=== PATIENT | female | born 1995 | race Caucasian/White ===

== ENCOUNTER 2024-05-08 12:56 | Emergency (ER) | payer MEDICAID, SELFPAY ==
[2024-05-08 13:58] VITALS: BP 141/72; PULSE 102; RESP 18; TEMP 36.4; O2SAT 95; BMI 26.6
--- NOTE | 2024-05-08 13:59 | ED_ITS ---
HPI - General Adult General Chief complaint: General Medical Stated complaint: medication Time Seen by Provider: 05/08/24 13:58 Source: patient Mode of arrival: ambulatory Limitations: no limitations History of Present Illness ED Provider: Adeola Pierre PA-C HPI narrative: Patient is a 28 year old assigned female at with a history of methadone use presenting to the emergency department today requesting her second dose. Patient states that she has a split dose of methadone and needs her second dose of 90mg. Patient denies any dizziness, lightheadedness, abdominal pain, nausea, vomiting, fever, chills, blurry vision, double vision, loss of vision, chest pain, difficulty breathing, shortness of breath, back pain, night sweats, pain with urination, increased urinary frequency, increased urinary urgency, blood in her urine or stool, syncope or a near syncopal episode, recent trauma or falls, bowel incontinence, bladder incontinence, or any other complaints at this time. Relieving factors: none Exacerbating factors: none Associated symptoms: denies other symptoms Treatments prior to arrival: none Related Data Home Medications ?Medication ?Instructions ?Recorded ?Confirmed methadone 10 mg/mL oral 90 mg PO BID 05/08/24 05/08/24 concentrate (Methadone Intensol) Allergies Allergy/AdvReac Type Severity Reaction Status Date / Time cranberry [CRANBERRY] Allergy Severe THROAT Verified 05/08/24 14:01 CLOSING pineapple [PINEAPPLE] Allergy Severe THROAT Verified 05/08/24 14:01 CLOSING Review of Systems Constitutional: Constitutional: Reports no additional constitutional complaints, Denies chills, Denies fever(s) and Denies night sweats Eyes: Eyes: Reports no additional eye complaints, Denies blurry vision, Denies change in vision, Denies diplopia, Denies eye discharge, Denies loss of vision and Denies eye pain ENT: Denies dizziness Cardiovascular: Cardiovascular: Reports no additional cardiovascular complaints, Denies chest pain, Denies lightheadedness, Denies Loss of Consciousness and Denies dyspnea Respiratory: Respiratory: Reports no additional respiratory complaints and Denies dyspnea Gastrointestinal: Gastrointestinal: Reports no additional gastrointestinal complaints, Denies abdominal pain, Denies melena, Denies hematochezia, Denies change in bowel habits and Denies change in stool character Genitourinary: Genitourinary: Denies hematuria, Denies urinary frequency, Denies dysuria, Denies urinary incontinence, Denies urinary hesitancy and Denies urinary urgency Musculoskeletal: Musculoskeletal: Reports no additional musculoskeletal complaints, Denies numbness and Denies tingling Neurologic: Denies dizziness, Denies loss of vision, Denies numbness and Den ies tingling Psychiatric: Psychiatric: Reports no additional psychiatric complaints Endocrine: Endocrine: Reports no additional endocrine complaints Hematologic/Lymphatic: Hematologic/Lymphatic: Reports no additional hematologic/lymphatic complaints Allergic/Immunologic: Allergic/Immunologic: Reports no additional allergic/immunologic complaints PMFSH Past Medical History Attestation statement: The following information was validated with the patient. Source: old records reviewed and nursing notes reviewed Social History Social History Advance Directives: No Advance Directives Information Provided: Yes Do you have a plan to hurt others: No Plan Physical Exam ED Vital Signs: Vital Signs - 24 hr 05/08/24 13:58 Temperature 97.6 F Pulse Rate 102 H Respiratory Rate 18 Blood Pressure 141/72 H Pulse Oximetry 95 Oxygen Delivery Method Room Air BMI result Body Mass Index 26.6 Const General: cooperative, no acute distress, alert and awake Nutritional Appearance: well nourished Orientation/consciousness: patient oriented x3 Limitations: no limitations HENMT Head: Yes normal to inspection and Yes atraumatic Ears: hearing grossly normal bilaterally and external ears normal General nose exam: Normal external nose present, no nasal discharge noted and no epistaxis Face and sinus: Yes normal facial exam, No abrasion and No laceration Mouth: Normal oral and palatal mucosa present, no drooling and no muffled voice Eyes General: appearance normal, both eyes and all related structures Periorbital: periorbital findings normal Eyelids: Yes eyelids normal Conjunctivae: conjunctivae normal Pupils: Equal, round and reactive pupils present EOM: EOMs intact bilaterally Neck Neck: Yes normal visual inspection, Yes full ROM and Yes no lymphadenopathy Chest Chest palpation & inspection: normal inspection of the chest Resp Effort & Inspection: normal respiratory effort and able to speak in complete sentences GI Inspection: Yes normal to inspection Neuro General: patient oriented x3 and moves all extremities Cranial nerves: Yes Equal, round and reactive pupils present Cognition (Neuro): normal cognition Extrem General: Yes normal to inspection, Yes full ROM and Yes capillary refill normal Psych Appearance: grossly normal Mental Status: mental status grossly normal Affect: normal affect Attitude: cooperative Thought process: Normal thought process present Thought content: Normal thought content present Insight: Good insight present (Psych) Medications Administered Discontinued Medications Generic Name Dose Route Start Last Admin Trade Name Ana Maria PRSelena Reason Stop Dose Admin Methadone HCl 90 mg 05/08/24 13:59 05/08/24 14:25 Methadone Hcl 20 Mg/2 Ml Oral.Conc PO 05/08/24 14:00 90 mg ONCE ONE Administration Medical Decision Making Medical Decision Making MDM Narrative: Patient is a 28 year old assigned female at with a history of methadone use presenting to the emergency department today requesting her second dose. Patient's physical exam was unremarkable. I explained my physical exam findings to the patient. I answered all questions asked by the patient. Patient received her dose of methadone and her last dose letter. I stressed the importance of the patient taking her medication as directed (either prescribed or as the over the counter packaging recommends). I stressed the importance of the patient following up with her primary care provider. I stressed the importance of the patient returning to the emergency department immediately if her symptoms were to worsen or if she were to develop any dizziness, shortness of breath, difficulty breathing, chest pain, blurry vision, loss of vision, nausea, vomiting, abdominal pain, fever, chills, back pain, or any other complaints. Patient verbalized agreement and understanding with this treatment plan and discharge. Differential Diagnosis Differential Diagnoses: The differential diagnosis associated with the presentation includes Methadone dose Admission/Observation Consideration of admission/observation: Escalation of care including admission/observation considered Patient would have been admitted to the hospital had her clinical presentation warranted hospital admission. Discharge Plan Discharge Clinical Impression: Methadone use Patient Disposition: Home, Self-Care Instructions: Opioid Use Disorder (ED) Additional Instructions: Follow up with your primary care provider. Return to the emergency department i mmediately if your symptoms worsen or if you develop any dizziness, shortness of breath, difficulty breathing, chest pain, blurry vision, loss of vision, nausea, vomiting, abdominal pain, fever, chills, back pain, or any other complaints. Prescriptions: No Action methadone [Methadone Intensol] 10 mg/mL Concentrate 90 mg PO BID Referrals: Lex Tong DO [Primary Care Provider] - Discharge Date/Time: 05/08/24 14:28 Print Language: Honduran
--- NOTE | 2024-05-08 14:12 | HE.PHANOTE ---
RE: METHADONE DOSING Patient takes methadone 90 mg QAM and 90 mg QPM. Last dose of 90 mg was given on 05/08/24 per [facility] [phone].
[2024-05-08] MEDS: methADONE HCl 20 MG/2 ML ORAL.CONC 90 MG PO (14:25)
== END 2024-05-08 14:28 | disposition home or self-care (01) ==
PROVIDERS: Emergency Provider Emergency Medicine; PCP Family Medicine
DX: F11.20 Opioid dependence, uncomplicated (principal)
CPT/HCPCS: 99281; 99283

== ENCOUNTER 2024-08-08 14:35 | Emergency (ER) | payer MEDICAID, SELFPAY ==
[2024-08-08 14:54] VITALS: BP 91/55; PULSE 77; RESP 20; TEMP 36.2; O2SAT 94; BMI 22.1
--- NOTE | 2024-08-08 14:59 | ED.GENADULT ---
HPI - General Adult General Chief complaint: General Medical Stated complaint: Methadone dose Time Seen by Provider: 08/08/24 19:26 Source: patient, RN notes reviewed and old records reviewed Mode of arrival: ambulatory Limitations: no limitations History of Present Illness ED Provider: Erica NAIR narrative: 29-year-old female presents for evaluation of methadone dosing. She was on a split dosing of 180 mg divided into two 90 mg doses daily Patient reports that she just got out of a [facility] detox. She was given her 1st morning dose of 90 mg and is due for her evening dose of 90 mg She plans to follow up with [facility] where she generally gets her morning dose in his given a take-home dose for her 2nd dose of the day Related Data Home Medications ?Medication ?Instructions ?Recorded ?Confirmed methadone 10 mg/mL oral 90 mg PO BID 05/08/24 08/08/24 concentrate (Methadone Intensol) Allergies Allergy/AdvReac Type Severity Reaction Status Date / Time cranberry [CRANBERRY] Allergy Severe THROAT Verified 08/08/24 14:58 CLOSING pineapple [PINEAPPLE] Allergy Severe THROAT Verified 08/08/24 14:58 CLOSING Review of Systems Constitutional: Constitutional: Denies body ache(s), Denies chills and Denies fever(s) PMFSH Social History Social History Advance Directives: No Advance Directives Information Provided: Yes Do you have a plan to hurt others: No Plan Physical Exam ED Vital Signs: Vital Signs - 24 hr 08/08/24 14:54 08/08/24 19:29 08/08/24 20:22 Temperature 97.2 F 97.6 F 97.6 F Pulse Rate 77 72 72 Respiratory Rate 20 16 16 Blood Pressure 91/55 L 97/66 97/66 Pulse Oximetry 94 95 95 Oxygen Delivery Method Room Air Room Air Room Air BMI result Body Mass Index 22.1 Const General: healthy appearing, comfortable, no acute distress, alert and awake Nutritional Appearance: well nourished Orientation/consciousness: patient oriented x3 HENMT Head: Yes normocephalic and Yes atraumatic Throat: Yes posterior oropharynx normal Eyes Eyelids: Yes eyelids normal Conjunctivae: conjunctivae normal Sclerae: sclerae normal Corneas: corneas normal Pupils: Equal, round and reactive pupils present EOM: EOMs intact bilaterally Neck Neck: Yes full ROM Resp Effort & Inspection: normal respiratory effort, able to speak in complete sentences, no audible wheezes and not labored Auscultation: clear to auscultation bilaterally Cardio Rate: regular rate Rhythm: regular rhythm Skin General skin exam: elasticity normal Neuro General: patient oriented x3 Cranial nerves: Yes Equal, round and reactive pupils present and Yes Bilaterally intact EOM present Cognition (Neuro): normal cognition Extrem Other: Moving all extremities well without any obvious deformities Course Course Course Narrative: RME, this is a rapid medical exam performed by Shimon Maldonado please refer to primary provider for complete H&P- 29 old female presents for evaluation of methadone dosing. She reports that she was on a [place] 35 and got her 1st dose this morning but she was on a split dose of 90 mg b.i.d.. She plans to go to the [facility] clinic tomorrow. She does have a last dose letter with her. Medications Administered Discontinued Medications Generic Name Dose Route Start Last Admin Trade Name Jaimeq PRN Reason Stop Dose Admin Methadone HCl 90 mg 08/08/24 20:10 08/08/24 20:16 Methadone Hcl 20 Mg/2 Ml Oral.Conc PO 08/08/24 20:11 90 mg ONCE ONE Administration Medical Decision Making Medical Decision Making [facility] Narrative: Patient's last dose letter was confirmed and verified. She was given a 90 mg dose and will be discharged to follow-up with her outpatient providers Differential Diagnosis Differential Diagnoses: The differential diagnosis associated with the presentation includes opiate abuse methadone dosing substance abuse opiate withdrawal Lab Data Labs: Lab Results 08/08/24 Range/Units 19:28 Urine Opiates Screen Not Detected (Not Detect) Ur Buprenorphine Scrn Not Detected (Not Detect) ng/mL Ur Oxycodone Screen Not Detected (Not Detect) ng/mL Urine Methadone Screen Positive H (Not Detect) ng/mL Urine Fentanyl Screen POSITIVE H (Not Detect) Ur Barbiturates Screen Not Detected (Not Detect) Ur Phencyclidine Scrn Not Detected (Not Detect) Ur Amphetamines Screen Not Detected (Not Detect) U Benzodiazepines Scrn Not Detected (Not Detect) Urine Cocaine Screen Not Detected (Not Detect) U Marijuana (THC) Screen Not Detected (Not Detect) Discharge Plan Discharge Clinical Impression: Opiate abuse, continuous Patient Disposition: Home, Self-Care Instructions: Opioid Use Disorder (ED) Additional Instructions: You were given a dose of methadone 90 mg Follow-up with your primary doctor, return for new or worsening symptoms Prescriptions: No Action methadone [Methadone Intensol] 10 mg/mL Concentrate 90 mg PO BID Interventions: ED Discharge Assessment Last Done: 08/08/24 20:22 Discharge Date/Time: 08/08/24 20:22 Print Language: Azeri
[2024-08-08 19:29] VITALS: BP 97/66; PULSE 72; RESP 16; TEMP 36.4; O2SAT 95
[2024-08-08 19:55] LABS: Amphetamine Screen Urine Not Detected (Not Detect); Barbiturates, Urine Not Detected (Not Detect); Benzodiazepines Screen Urine Not Detected (Not Detect); Buprenorphine Scr Not Detected (Not Detect); Cannabinoid Screen Urine Not Detected (Not Detect); Cocaine Screen Urine Not Detected (Not Detect); Fentanyl, urine POSITIVE (Not Detect); Methadone Screen, Urine Positive (Not Detect); Opiate Screen Urine Not Detected (Not Detect); Oxycodone Screen Urine Not Detected (Not Detect); Phencyclidine Screen Urine Not Detected (Not Detect)
--- NOTE | 2024-08-08 20:07 | HE.PHANOTE ---
Methadone verified 90 mg bid [facility]
--- NOTE | 2024-08-08 20:09 | PC.NURSE ---
[facility] with [facility]- nurse Michael pt rec 90mg bid last dose 0600 08/08/24
[2024-08-08] MEDS: methADONE HCl 20 MG/2 ML ORAL.CONC 90 MG PO (20:16)
[2024-08-08 20:22] VITALS: BP 97/66; PULSE 72; RESP 16; TEMP 36.4; O2SAT 95
== END 2024-08-08 20:22 | disposition home or self-care (01) ==
PROVIDERS: Emergency Provider Emergency Medicine; PCP Family Medicine
DX: F11.10 Opioid abuse, uncomplicated (principal)
CPT/HCPCS: 80307; 99283